=== PATIENT | male | born 1955 | race Caucasian/White ===

== ENCOUNTER → 2017-10-23 | Outpatient (CLI) | payer MEDICARE | END | disposition home or self-care (01) | LOC: OIH 11:42 | PROVIDERS: ATTEND Internal Medicine | DX: M47.894 Other spondylosis, thoracic region (principal); J20.9 Acute bronchitis, unspecified | CPT/HCPCS: 71046 ==

== ENCOUNTER → 2017-12-18 | Outpatient (CLI) | payer MEDICARE | END | disposition home or self-care (01) | LOC: OIH 10:30 | PROVIDERS: ATTEND Internal Medicine | DX: I51.7 Cardiomegaly (principal); K80.20 Calculus of gallbladder without cholecystitis without obstruction; M47.894 Other spondylosis, thoracic region | CPT/HCPCS: 71250 ==

== ENCOUNTER 2017-12-23 21:03 | Emergency (ER) | payer MEDICARE ==
[2017-12-23 22:35] LABS: BASOPHILS % (AUTO) 0.5 % (0.0-5.0); EOSINOPHILS % (AUTO) 1.1 % (0.0-8.0); HEMATOCRIT 34.8 % (42-54); LYMPHOCYTES % (AUTO) 9.9 % (21.0-51.0); MEAN CORPUSCULAR HEMOGLOBIN 30.1 pg (27.0-33.0); MEAN CORPUSCULAR VOLUME 88.8 fL (79-99); MONOCYTES % (AUTO) 7.2 % (3.0-13.0); NEUTROPHILS % (AUTO) 81.3 % (40.0-77.0); PLATELET COUNT (AUTO) 205 K/uL (130-400); RED BLOOD CELL COUNT(AUTO) 3.92 MIL/uL (4.50-6.20); RED CELL DISTRIBUTION WIDTH 19.3 % (11.0-15.5); WHITE BLOOD COUNT (AUTO) 8.1 K/uL (4.8-10.8)
[2017-12-23 22:44] LABS: INR 2.51 (0.85-1.15); PARTIAL THROMBOPLASTIN TIME 34.1 SEC (26.3-35.5); PROTHROMBIN TIME 25.9 SEC (9.6-11.6)
[2017-12-23 23:01] LABS: CREATININE 1.2 mg/dL (0.5-1.5); POTASSIUM 4.9 mmol/L (3.5-5.1)
[2017-12-23 23:04] LABS: ALBUMIN 3.1 g/dL (3.5-5.0); TOTAL PROTEIN, SERUM 6.7 g/dL (6.0-8.3)
[2017-12-23 23:43] LABS: APPEARANCE,URINE Clear (CLEAR); BILIRUBIN,URINE Negative (NEGATIVE); COLOR,URINE Yellow (YELLOW); GLUCOSE, URINE (UA) Negative (NEGATIVE); KETONES,URINE Negative (NEGATIVE); LEUKOCYTE ESTERASE ,URINE Small (NEGATIVE); NITRATE,URINE Positive (NEGATIVE); OCCULT BLOOD,URINE Small (NEGATIVE); PROTEIN,URINE Negative (NEGATIVE); UROBILINOGEN,URINE 0.2 mg/dL (0.2-1.0)
[2017-12-23 23:57] LABS: BACTERIA,URINE Many /HPF (None Seen); RBC,URINE None Seen /HPF (0-1)
[2017-12-23 23:58] LABS: MUCUS,URINE None Seen LPF (None Seen); SQUAMOUS EPITHELIAL CELL,UR None Seen /LPF (0-2)
== END 2017-12-23 23:54 | disposition home or self-care (01) ==
LOC: EDH 21:03
DX: S20.222A Contusion of left back wall of thorax, initial encounter (principal); R31.9 Hematuria, unspecified; I10 Essential (primary) hypertension; E11.9 Type 2 diabetes mellitus without complications; I25.10 Atherosclerotic heart disease of native coronary artery without angina pectoris; I48.91 Unspecified atrial fibrillation; Z98.890 Other specified postprocedural states; Z88.8 Allergy status to other drugs, medicaments and biological substances; W01.0XXA Fall on same level from slipping, tripping and stumbling without subsequent striking against object, initial encounter; Y93.89 Activity, other specified; Y92.89 Other specified places as the place of occurrence of the external cause; Y99.8 Other external cause status
CPT/HCPCS: 36415; 71045; 74176; 80053; 81001; 83880; 84484; 85025; 85610; 85730; 93005

== ENCOUNTER → 2018-07-31 | Outpatient (CLI) | payer MEDICARE | END | disposition home or self-care (01) | LOC: OIH 13:38 | PROVIDERS: ATTEND Internal Medicine | DX: J84.9 Interstitial pulmonary disease, unspecified (principal); J84.10 Pulmonary fibrosis, unspecified | CPT/HCPCS: 71046 ==

== ENCOUNTER → 2018-08-07 | Outpatient (CLI) | payer MEDICARE | END | disposition home or self-care (01) | LOC: OIH 08:50 | PROVIDERS: ATTEND Internal Medicine | DX: J84.10 Pulmonary fibrosis, unspecified (principal); J90 Pleural effusion, not elsewhere classified | CPT/HCPCS: 71250 ==

== ENCOUNTER → 2018-10-01 | Outpatient (CLI) | payer MEDICARE | END | disposition home or self-care (01) | LOC: RAH 13:28 | PROVIDERS: ATTEND Neurological Surgery | DX: M51.36 Other intervertebral disc degeneration, lumbar region (principal); M43.06 Spondylolysis, lumbar region | CPT/HCPCS: 72131 ==

== ENCOUNTER → 2019-02-03 | Outpatient (CLI) | payer MEDICARE | END | disposition home or self-care (01) | LOC: OIH 11:25 | PROVIDERS: ATTEND Internal Medicine | DX: J84.10 Pulmonary fibrosis, unspecified (principal) | CPT/HCPCS: 71046 ==

== ENCOUNTER → 2020-06-21 | Outpatient (CLI) | payer MEDICARE ==
[~2020-06-21] MED LIST: ATOR-2 PO; FURO40TA7 PO; GLIM2TAB30 PO; LOSA25TA41 PO; PIOG45TA64 PO; SPIR25TA6 PO; WARF-57 PO
== END | disposition home or self-care (01) ==
LOC: OIH 11:13
PROVIDERS: ATTEND Internal Medicine
DX: R05 Cough (principal); Z95.0 Presence of cardiac pacemaker
CPT/HCPCS: 71046